=== PATIENT | female | born 2000 | race Caucasian/White ===

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

== ENCOUNTER 2020-09-13 11:55 | Emergency (ER) | payer OTHER, SELFPAY ==
[~2020-09-13 11:55] MED LIST changes: -Dexamethasone 20 MG/5 ML VIAL ONE; -Glycopyrrolate 0.2 MG/ML 5 ML SYRINGE ONE; -ISOVUE-370 76%-LOCM 1 ML ONE; -Iopamidol 370 76% 50 ML VIAL FS ONE; +Iopamidol-370 76% 500 ML 1 ML ONE; -Ketorolac Tromethamine 30 MG/ML VIAL ONE; -Ondansetron HCl/PF 4 MG/2 ML Vial ONE; -Propofol 200 MG/20 ML VIAL ONE; -Succinylcholine Chloride 20 MG/ML 10 ml SYRINGE FS ONE; -diphenhydrAMINE 50 MG/ML VIAL ONE
[2020-09-13 12:21] LABS: Bacteria/HPF None Seen HPF (None Seen); Bilirubin Negative (Negative); Blood, Urine Negative (Negative); Clarity Clear (Clear); Glucose, Urine (Dipstick) Normal (Negative); Ketone, Urine Negative (Negative); Leukocyte 25 Leu/uL (Negative); Nitrite Negative (Negative); Protein, Urine (Dipstick) Negative (Neg-Trace); RBC/HPF 0-3 HPF (0-3); Specific Gravity, Urine 1.023 (1.002-1.036); Urobilinogen Normal mg/dL (Less than 2); pH, Urine 7.5 (5.0-9.0)
[2020-09-13 12:24] LABS: Pregnancy Test - Urine (BHCG) Negative (Negative); Pregu Control Background? CLEAR/WHITE (CLR/WHITE); Pregu Control Bar Appear? YES (CONTROL BAR); Specific Gravity 1.023 (1.002-1.036)
[2020-09-13 13:20] LABS: #Basophils 0.1 thou/uL (0.0-0.2); #Eosinphils 2.6 thou/uL (0.0-0.7); #Lymphocytes 2.2 thou/uL (1.20-3.40); #Monocytes 0.8 thou/uL (0.11-0.59); #Neutrophils 9.1 thou/uL (1.40-6.50); %Basophils 0.5 % (0.0-1.0); %Eosinophils 17.8 % (0.0-10.0); %Lymphocytes 15.1 % (28.0-48.0); %Monocytes 5.1 % (0.0-4.0); %Neutrophils 61.5 % (31.0-61.0); Mean Corpuscular HGB CONC 35.5 g/dL (32.0-36.0); Mean Corpuscular Hemoglobin 31.2 pg (25.0-35.0); Mean Corpuscular Volume 87.8 fL (78.0-98.0); Mean Platelet Volume 8.1 fL (7.4-10.4); Platelet Count 239 thou/uL (130-400); RBC Distribution Width 11.5 % (11.5-14.5); White Blood Cell (WBC) Count 14.8 thou/uL (4.8-10.8)
[2020-09-13 13:34] LABS: ALT (SGPT) 30 U/L (8-55); AST (SGOT) 15 U/L (5-30); Albumin 4.1 g/dL (3.5-5.0); Alkaline Phosphatase 50 U/L (40-100); Anion Gap 12 mmol/L (10-20); BUN (Urea Nitrogen) 12 mg/dL (8.4-21.0); Bilirubin, Total 0.3 mg/dL (0.2-1.2); Calc. Creatinine Clearance 0 mL/min (70-130); Calcium 9.2 mg/dL (7.8-10.44); Carbon Dioxide 27 mmol/L (22-29); Chloride 104 mmol/L (98-107); Estimated GFR-MDRD Greater than 90; Globulin 2.9 g/dL (2.4-3.5); Glucose 103 mg/dL (70-105); Lipase 22 U/L (8-78); Potassium 3.9 mmol/L (3.5-5.1); Sodium 139 mmol/L (136-145)
[2020-09-13] MEDS ORDERED: Azithromycin 250 MG TAB ONE (14:34)
[2020-09-13] MEDS ORDERED: cefTRIAXone\\ROCEPHIN 250 MG VIAL ONE (14:34)
[2020-09-13] MEDS ORDERED: Lidocaine 1% PF 5 ML VIAL ONE (14:35)
--- NOTE | 2020-09-13 14:40 | ULT ---
Exam: Transabdominal and endovaginal pelvic ultrasound HISTORY:Pain COMPARISON: None TECHNIQUE: Transabdominal and endovaginal imaging of the pelvis is performed. Ovaries are interrogate d with grayscale, color flow, Doppler imaging and spectral wave form analysis FINDINGS: Uterus: No myometrial masses. Uterus measurin.8 x 7.6 x 3.8 cm. Endometrium: Homogeneous echotexture. Endometrium diameter: 0.5 cm. . Free fluid: None Right ovary: Normal echotexture Right ovary measurement: 1.8 x 1.5 x 2.7 cm Left ovary: Normal echotexture. There are follicles present. Dominant follicle measures 1.2 cm Left ovary measurements: 3.4 x 2.1 x 1.2 cm Ovarian Doppler: There is vascular flow to the left and right ovary. IMPRESSION: 1. Dominant left ovarian follicle. 2. Normal echotexture of the uterus. 3. Vascular flow to both ovaries.
[2020-09-13] MEDS ORDERED: Morphine 4 MG/ML VIAL ONE (16:07)
--- NOTE | 2020-09-13 17:04 | CT ---
CT OF THE ABDOMEN AND PELVIS WITH IV CONTRAST INDICATION: Vaginal spotting, dysuria and abdominal pain COMPARISON: Pelvic ultrasound dated September 13, 2020 FINDINGS: ABDOMEN: Lung bases: Clear Liver: No focal lesion. Gallbladder: Normal appearing. Pancreas: Normal. Adrenal glands: Normal. Spleen: Normal. Kidneys and ureters: Normal. No hydronephrosis. Vasculature: Normal. Lymph nodes:No lymphadenopathy. Free fluid in abdomen:No free fluid is evident. PELVIS: Small and large bowel: Normal Appendix:Not definitely seen and presumed to be surgically absent. Bladder: Normal. Rectal and perirectal soft tissues:Normal. Reproductive structures: Please see pelvic ultrasound Free fluid in pelvis: No free fluid is evident. Lymphadenopathy pelvis: No lymphadenopathy is evident. Osseous structures: No acute osseous abnormality. No destructive osteolytic or osteoblastic lesion i s identified. There is scattered degenerative and osteoarthritic changes. Soft tissues:Normal. IMPRESSION: 1. No acute abnormality.
[2020-09-15 23:27] LABS: Chlamydia by PCR Not Detected (NotDetected); GC by PCR Not Detected (NotDetected)
== END 2020-09-13 17:59 | disposition home or self-care (01) ==
LOC: ERS 11:55
DX: R10.30 Lower abdominal pain, unspecified (principal); R10.13 Epigastric pain; E28.2 Polycystic ovarian syndrome
CPT/HCPCS: 74177; 76856; 80053; 81003; 81015; 81025; 83690; 85025; 87491; 87591; 96372; 96374; J0696; J2270; Q9967

== ENCOUNTER 2020-10-17 12:27 | Emergency (ER) | payer SELFPAY ==
[2020-10-17] MEDS ORDERED: Iopamidol-370 76% 500 ML 1 ML ONE (13:11)
[2020-10-17 13:22] LABS: #Eosinphils 1.1 thou/uL (0.0-0.7); #Lymphocytes 2.1 thou/uL (1.20-3.40); #Monocytes 0.4 thou/uL (0.11-0.59); #Neutrophils 3.2 thou/uL (1.40-6.50); %Basophils 0.6 % (0.0-1.0); %Eosinophils 16.1 % (0.0-10.0); %Lymphocytes 30.6 % (28.0-48.0); %Monocytes 6.2 % (0.0-4.0); %Neutrophils 46.5 % (31.0-61.0); Hemoglobin 13.2 g/dL (12.0-16.0); Mean Corpuscular HGB CONC 33.6 g/dL (32.0-36.0); Mean Corpuscular Hemoglobin 30.4 pg (25.0-35.0); Mean Corpuscular Volume 90.5 fL (78.0-98.0); Mean Platelet Volume 8.1 fL (7.4-10.4); Platelet Count 215 thou/uL (130-400); RBC Distribution Width 11.8 % (11.5-14.5); Red Blood Cell (RBC) Count 4.33 mill/uL (4.00-5.20); White Blood Cell (WBC) Count 6.8 thou/uL (4.8-10.8)
[2020-10-17 13:48] LABS: ALT (SGPT) 32 U/L (8-55); AST (SGOT) 19 U/L (5-30); Albumin 4.1 g/dL (3.5-5.0); Alkaline Phosphatase 42 U/L (40-100); Anion Gap 12 mmol/L (10-20); BUN (Urea Nitrogen) 8 mg/dL (8.4-21.0); Bilirubin, Total 0.3 mg/dL (0.2-1.2); Calc. Creatinine Clearance 0 mL/min (70-130); Calcium 8.9 mg/dL (7.8-10.44); Carbon Dioxide 26 mmol/L (22-29); Chloride 106 mmol/L (98-107); Globulin 2.7 g/dL (2.4-3.5); Glucose 121 mg/dL (70-105); Lipase 31 U/L (8-78); Potassium 3.7 mmol/L (3.5-5.1); Protein, Total 6.8 g/dL (6.0-8.3); Sodium 140 mmol/L (136-145)
[2020-10-17] MEDS ORDERED: Morphine 4 MG/ML VIAL ONE ×2 (14:12→16:11)
[2020-10-17] MEDS ORDERED: Ondansetron PF 4 MG/2 ML Vial ONE ×2 (14:12→16:51)
[2020-10-17 14:49] LABS: BHCG - Serum Negative (NEGATIVE); Pregs Control Background? CLEAR/WHITE (CLR/WHITE); Pregs Control Bar Appear? YES (CONTROL BAR)
[2020-10-17 15:21] LABS: Bilirubin Negative (Negative); Blood, Urine Negative (Negative); Clarity Clear (Clear); Glucose, Urine (Dipstick) Normal (Negative); Ketone, Urine Negative (Negative); Leukocyte Negative Leu/uL (Negative); Nitrite Negative (Negative); Protein, Urine (Dipstick) Negative (Neg-Trace); Urobilinogen Normal mg/dL (Less than 2); pH, Urine 7.5 (5.0-9.0)
[2020-10-17 15:29] LABS: Pregnancy Test - Urine (BHCG) Negative (Negative); Pregu Control Background? CLEAR/WHITE (CLR/WHITE); Pregu Control Bar Appear? YES (CONTROL BAR)
--- NOTE | 2020-10-17 15:34 | ULT ---
ULTRASOUND PELVIC ULTRASOUND TRANSVAGINAL DOPPLER DUPLEX: DATE: 10/17/2020 HISTORY: 19-year-old female with pelvic pain. Rule out ovarian torsion. TECHNIQUE: Transabdominal transducer and endovaginal transducer used to visualize intrapelvic contents with sotomayor scale, color-flow, and spectral analysis. FINDINGS: Uterus:7 x 2.5 x 4 cm.. Endometrial stripe:0.4 cm (4 mm). Right ovary:3.6 x 2.6 x 2.6 cm.. Left ovary:2.4 x 3.5 x 2.6 cm.. Uterine leiomyoma (fibroid):None Blood flow in ovaries:Bilaterally demonstrated Ovarian cyst:None. There are numerous prominent bilateral ovarian follicles. Largest on each side is 0.9 cm Free fluid in the cul-de-sac:Tiny amount IMPRESSION: 1) many bilateral ovarian follicles. 2) otherwise negative
--- NOTE | 2020-10-17 17:28 | CT ---
CT Abdomen Pelvis W Con History: Right lower quadrant pain Comparison: Pelvic ultrasound same day. CT abdomen and pelvis of September 13, 2020 Findings: Lung bases are clear. No pericardial effusion. The liver, gallbladder, spleen, pancreas, adrenal glands are unremarkable. Mild fullness of the right renal pelvis and proximal right ureter without a distal obstructing stone. The urinary bladder is distended. Mildly enlarged ovaries bilaterally. Suture is noted along the cecal apex. The celiac trunk and superior mesenteric arteries are patent. No dilated loops of large or small nichelle l. No free intraperitoneal gas or fluid. 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 No acute osseous abnormality. Impression: 1. Mild fullness of the right renal pelvis likely physiologic due to the distended urinary bladder wh ich has evidence of recent instrumentation. 2. Mildly enlarged bilateral ovaries. 3. No free intraperitoneal inflammatory fluid.
[2020-10-17] MEDS ORDERED: Ketorolac Tromethamine 30 MG/ML VIAL ONE (17:49)
--- NOTE | 2020-10-18 01:06 | CON ---
DATE OF CONSULTATION: 10/17/2020 CHIEF COMPLAINT: Pelvic pain. HISTORY OF PRESENT ILLNESS: The patient is a 19-year-old G1, P0 female, presenting to the emergency room with sudden onset severe left lower abdominal pain after having intercourse. The patient was counseled by Ms. Rice, local PA, to come to the emergency room for evaluation. There, during her emergency room evaluation, the patient was noted to have an ultrasound demonstrating flow to both ovaries with multiple cysts, follicles present supporting a reported diagnosis of PCOS; however, no evidence of torsion or free fluid in the pelvis was noted. Given the level of her pain, [employer] was consulted. Upon presentation to the room, patient was noted to be lying comfortably in the bed. After some discussion, she reports that her pain started about 7 months ago. She reports that she has gained about 100 pounds in the last year and stopped having regular periods at the beginning of this year where she went up to 6 months without a period. After being evaluated by a local provider, she was diagnosed with PCOS and has been on control off and on with reported poor compliance, though renewed effort to take it daily. The patient reports that her pain became acute after intercourse last night and the intensity was bad enough that she came for evaluation. She reports she was told over the phone that she needed emergency surgery and that she could have ovarian torsion. The patient does report very painful periods. She reports pain in between her periods primarily on that left side and in her back and she reports it feels like cramping. She also reports nearly daily diarrhea and bowel gas with a history of C. difficile last year as a complication of a hospitalization for acute renal failure, for which she was hospitalized for a week. The patient reports history of chlamydia few months ago, but has since not been with that partner and reports being treated. She denies any current change in discharge. The patient denies fever. She does report a headache. Denies chest pain or shortness of breath. She reports some nausea. Denies vomiting. She reports daily diarrhea. Denies constipation. Denies urinary urgency or frequency. Denies vaginal discharge. She reports the first day of her last period being October 06 and ended about a week ago. PAST MEDICAL HISTORY: Significant for ADHD, history of acute renal failure that she describes as a complication of strep throat untreated, PCOS, genital herpes, history of pneumomediastinum. PAST SURGICAL HISTORY: Appendectomy, right knee surgery. SOCIAL HISTORY: Reports occasional alcohol use and tobacco use and near daily marijuana use. ALLERGIES: NO KNOWN DRUG ALLERGIES. MEDICATIONS: She takes oral contraceptive pills and was recently prescribed Bentyl and Pepcid. PHYSICAL EXAMINATION: VITAL SIGNS: Blood pressure 135/54, pulse 79, respiratory rate of 16, saturating at 98% on room air. She reports her pain of 8/10. GENERAL: Patient appears to be in no acute distress during much of our visit. She is alert, oriented, cooperative, and pleasant to interact with. HEENT: Head is normocephalic and atraumatic. LUNGS: Clear to auscultation bilaterally. HEART: Has regular rate and rhythm. ABDOMEN: Soft. She does have some tenderness in the upper abdomen and in the lower abdomen, particularly in the suprapubic and left lower pelvis. EXTREMITIES: Nontender, nonedematous. GENITOURINARY: Vulva was without masses, lesions, or erythema. Vagina is moist. She does not appear to have any unusual discharge present. Cervix has a small erosive-appearing lesion, but otherwise appears normal. On Q-tip test, patient does not have any pain pressing into her posterior anterior fornix with moderate amount of pressure. She does on bimanual exam have pain primarily focused on her cervix and uterus. She does have some pain in her left adnexa, but it seems to radiate to the middle. There is no nodularity palpable, but also is difficult to reach her uterosacral ligaments. No masses are palpable. Pelvic ultrasound again shows uterus of 7 x 2.5 x 4 cm, endometrial stripe of 4 mm. Right ovary of 3.6 x 2.6 x 2.6 cm. Left ovary 2.4 x 3.5 x 2.6 cm. Both ovaries demonstrating numerous prominent follicles. There is a tiny amount of free fluid seen. CT of the pelvis shows some mild fullness of the right renal pelvis, likely physiologic due to the distended urinary bladder. Mildly enlarged ovaries and no free intraperitoneal inflammatory fluid. Labs show white count of 6.8, hemoglobin of 13.2, hematocrit 39.2, and platelets of 215,000. Sodium of 140, potassium of 3.7, BUN of 8, creatinine of 0.79, glucose of 121, lactic acid of 1, AST of 19, ALT of 32, lipase of 31. test is negative. Urine shows a specific gravity of 1.010, no ketones, no nitrites, no leukocyte esterase. Urine is clear and colorless. GC and chlamydia were collected prior to my visit and are pending. VP3 was also collected and negative for Trichomonas, Gardnerella, and Merlyn. ASSESSMENT AND PLAN: The patient is a 19-year-old female with a 7-month history of pelvic pain, exacerbated with intercourse this last week, the pain was acute this last night. The patient does have a history of chlamydia, though treated. She does not have any purulent discharge apart from the pain in the body of the cervix and uterus, any findings or signs that are suggestive of a pelvic inflammatory disease. White count is normal. No discharge. Afebrile. Patient's history may suggest developing endometriosis or adenomyosis as the pain seems to stay focused in the body of the uterus. The patient does report that she has been taking her control pills inconsistently as she forgets to take them regularly, but in the last 2 weeks has made greater effort and has been compliant for that period of time. The patient up to now has been seen by a physician assistant professor of archaeology. I did recommend that she follow up with her [facility] physician to discuss further evaluation for this pain should it persist and to discuss the possibility of endometriosis or adenomyosis as a cause for her pain. The patient does not have any acute findings at this time necessitating emergency surgery or inpatient management. The patient will be discharged home, which she is agreeable to and will be making appointment with one of the physicians at [facility] [place]. She reports that she was seeing Dr. Gold before and will likely try to make an appointment with him. I have shared my findings with the ER physician on duty and the patient is okay for discharge from my standpoint. Job ID: [id number]
[2020-10-18 21:15] LABS: Chlamydia by PCR Not Detected (NotDetected); GC by PCR Not Detected (NotDetected)
== END 2020-10-17 18:26 | disposition home or self-care (01) ==
LOC: ERS 12:27
DX: R10.32 Left lower quadrant pain (principal); A64 Unspecified sexually transmitted disease
CPT/HCPCS: 36415; 74177; 76856; 80053; 81003; 81025; 83605; 83690; 84703; 85025; 87480; 87491; 87510; 87591; 87660; 96374; 96375; 96376; J1885; J2270; J2405; Q9967

== ENCOUNTER 2021-10-10 13:43 | Emergency (ER) | payer BC ==
[2021-10-10] MEDS ORDERED: Acetaminophen 500 MG TAB ONE (16:09)
[2021-10-10] MEDS ORDERED: Ketorolac Tromethamine 30 MG/ML VIAL ONE (17:06)
== END 2021-10-10 18:35 | disposition home or self-care (01) ==
LOC: ERS 13:43
DX: S86.912A Strain of unspecified muscle(s) and tendon(s) at lower leg level, left leg, initial encounter (principal); S00.83XA Contusion of other part of head, initial encounter; Y04.8XXA Assault by other bodily force, initial encounter; Z86.19 Personal history of other infectious and parasitic diseases; F17.290 Nicotine dependence, other tobacco product, uncomplicated
CPT/HCPCS: 70150; 96372; J1885

== ENCOUNTER 2021-10-11 09:49 | Emergency (ER) | payer BC | END 2021-10-11 11:05 | disposition home or self-care (01) | LOC: ERS 09:49 | DX: S00.83XA Contusion of other part of head, initial encounter (principal); F17.290 Nicotine dependence, other tobacco product, uncomplicated | CPT/HCPCS: 70486 ==

== ENCOUNTER 2021-10-12 13:44 | Outpatient (CLI) | payer BC | END 2021-10-12 13:45 | disposition home or self-care (01) | LOC: BICRAD 13:44 | PROVIDERS: ATTEND Nurse Practitioner Family | DX: M54.2 Cervicalgia (principal) | CPT/HCPCS: 72052 ==